=== PATIENT | female | born 1975 | race Caucasian/White ===

== ENCOUNTER 2018-09-10 14:33 | Emergency (ER) | payer OTHER ==
[~2018-09-10] VITALS: Ht 182.9 cm; Wt 122.5 kg
[~2018-09-10 14:33] MED LIST: ADIPEX-P37.5 MG; DESOGEN PO; HYDROCODON-ACE1 EAC7 PO; NAPROSYN500 MG PO; NOHOMEMEDICATIONS; NORCO 5-325 TA1 EACH PO; NUPERCAINAL56.7 GM RC; PROTONIX 20 MG20 M1 PO; TOPAMAX50 MG PO; TRAMADOL 50 MG50 MG PO; ZOFRAN ODT4 MG PO
[2018-09-10] MEDS ORDERED: PHENTERMINE HCL30 MG PO (14:49)
[2018-09-10] MEDS ORDERED: TOPAMAX 25 MG T25 M1 PO (14:49)
[2018-09-10 15:46] LABS: HEMOGLOBIN 9.8 gm/dL (12.0-15.0); PLATELET COUNT* 155 thou/uL (150-400); RDW-CV 19.9 % (10.5-14.5); WBC 2.5 thou/uL (4.0-11.0)
[2018-09-10 15:49] LABS: ABSOLUTE EOSINOPHILS 0.1 thou/uL (0.0-0.7); ABSOLUTE LYMPHOCYTES 0.7 thou/uL (0.8-5.3); ABSOLUTE MONOCYTES 0.3 thou/uL (0.0-1.2); ABSOLUTE NEUTROPHILS 1.3 thou/uL (1.6-8.1); BASOPHILS 0.6 %; EOSINOPHILS 5.9 %; HEMATOCRIT 31.4 % (37.0-47.0); LYMPHOCYTES 29.3 %; MCH 21.4 pg (26.0-34.0); MCHC 31.4 g/dL (28.0-37.0); MCV 68.1 fL (80.0-100.0); MONOCYTES 11.4 %; MPV 8.6 fl. (7.2-11.1); NUCLEATED RBCS 0 /100WBC; POLYS 52.8 %
[2018-09-10 15:56] LABS: PROTIME 10.2 Seconds (9.20-11.50)
[2018-09-10 16:02] LABS: ALBUMIN 3.7 g/dL (3.4-5.0); ALKALINE PHOSPHATASE 66 U/L (46-116); ANION GAP 10 mmol/L (7-16); BUN 7 mg/dL (7-18); CALCIUM 9.3 mg/dL (8.5-10.1); CHLORIDE 105 mmol/L (98-107); CO2 25 mmol/L (21-32); CREATININE 0.9 mg/dL (0.6-1.3); GLUCOSE 99 mg/dL (70-99); LIPASE 116 U/L (73-393); POTASSIUM 3.5 mmol/L (3.5-5.1); SGOT 22 U/L (15-37); SGPT 22 U/L (30-65); SODIUM 140 mmol/L (136-145); TOTAL BILIRUBIN 0.6 mg/dL (<0.1-1.0); TOTAL PROTEIN 7.8 g/dL (6.4-8.2); TROPONIN-I LEVEL <0.06 ng/mL (<0.06)
[2018-09-10 16:32] LABS: ANISOCYTOSIS 2+; HYPOCHROMASIA 1+; MICROCYTES 1+; OVALOCYTES 2+; POLYCHROMASIA 1+
[2018-09-10] MEDS ORDERED: IRON 100 PLUS1 EACH PO (17:32)
[2018-09-10 17:58] VITALS: BP 130/94
--- NOTE | 2018-09-11 14:15 | EKG ---
[place] [address] ELECTROCARDIOGRAM REPORT Name: ISIAH BHAT Room: [facility]#: [id number] Admission: 09/10/18 Attend Phys: Discharge: 09/10/18 Date of : 79 Report #: [id number] THIS REPORT FOR: //name// [facility] Test Date: 2018-09-10 Test Time: 14:39:43 Pat Name: ISIAH SMITHPP Department: Room: Gender: F [employer] Estimator: : 1975 Requested By: Willow Nguyen Order Number: [id number] MD: Jonny Arreaga Measurements Intervals [place] Rate: 83 P: 6 SC: 138 QRS: -24 QRSD: 98 T: 1 QT: 380 QTc: 447 Interpretive Statements Sinus rhythm Borderline left axis deviation RSR' in V1 or V2, probably normal variant Borderline T abnormalities, anterior leads Compared to ECG 08/15/2016 18:48:50 T-wave abnormality now present Electronically Signed On 09-11-2018 14:15:15 CDT by Jonny Arreaga [email or web address] <ELECTRONICALLY SIGNED> By: Jonny Arreaga MD, [facility] 09/11/18 1415 1439 1439 Jonny Arreaga MD, [facility] /EPI
== END 2018-09-10 17:58 | disposition home or self-care (01) ==
LOC: M.ERS 14:33
PROVIDERS: Personal Emergency Response Attendant
DX: D61.818 Other pancytopenia (principal); Z90.49 Acquired absence of other specified parts of digestive tract; Z98.890 Other specified postprocedural states; Z91.041 Radiographic dye allergy status

== ENCOUNTER 2018-10-17 15:43 | Emergency (ER) | payer OTHER ==
[~2018-10-17] VITALS: Ht 182.9 cm; Wt 122.5 kg
[~2018-10-17 15:43] MED LIST changes: +IRON 100 PLUS1 EACH PO; +PHENTERMINE HCL30 MG PO; +TOPAMAX 25 MG T25 M1 PO
[2018-10-17 16:04] LABS: ABSOLUTE EOSINOPHILS 0.2 thou/uL (0.0-0.7); ABSOLUTE LYMPHOCYTES 0.8 thou/uL (0.8-5.3); ABSOLUTE MONOCYTES 0.3 thou/uL (0.0-1.2); ABSOLUTE NEUTROPHILS 1.9 thou/uL (1.6-8.1); BASOPHILS 0.5 %; EOSINOPHILS 4.9 %; HEMATOCRIT 30.8 % (37.0-47.0); LYMPHOCYTES 25.2 %; MCH 22.5 pg (26.0-34.0); MCHC 32.5 g/dL (28.0-37.0); MCV 69.4 fL (80.0-100.0); MPV 8.2 fl. (7.2-11.1); NUCLEATED RBCS 0 /100WBC; PLATELET COUNT* 175 thou/uL (150-400); POLYS 59.4 %; RBC 4.43 mil/uL (4.20-5.00); RDW-CV 19.9 % (10.5-14.5); WBC 3.2 thou/uL (4.0-11.0)
[2018-10-17 16:17] LABS: ANION GAP 9 mmol/L (7-16); BUN 16 mg/dL (7-18); CALCIUM 9.2 mg/dL (8.5-10.1); CHLORIDE 105 mmol/L (98-107); CO2 26 mmol/L (21-32); CREATININE 0.8 mg/dL (0.6-1.3); GLUCOSE 84 mg/dL (70-99); POTASSIUM 3.5 mmol/L (3.5-5.1); SODIUM 140 mmol/L (136-145)
[2018-10-17 16:19] LABS: APTT 24.7 Seconds (25.0-31.3); PROTIME 10.1 Seconds (9.20-11.50)
[2018-10-17 16:22] LABS: HYPOCHROMASIA 2+; MICROCYTES 1+
[2018-10-17 16:23] LABS: ANISOCYTOSIS 1+
[2018-10-17 16:31] LABS: ALBUMIN 3.7 g/dL (3.4-5.0); ALKALINE PHOSPHATASE 66 U/L (46-116); CK-MB MASS 0.6 ng/mL (<0.5-3.6); LIPASE 165 U/L (73-393); MAGNESIUM 1.8 mg/dL (1.8-2.4); NT-PRO BRAIN NAT PEPTIDE 25 pg/mL (<300); SGOT 12 U/L (15-37); SGPT 22 U/L (30-65); TOTAL BILIRUBIN 0.4 mg/dL (<0.1-1.0); TOTAL PROTEIN 7.7 g/dL (6.4-8.2); TROPONIN-I LEVEL <0.06 ng/mL (<0.06)
[2018-10-17 17:00] VITALS: BP 126/55
--- NOTE | 2018-10-18 10:47 | EKG ---
[place] [address] ELECTROCARDIOGRAM REPORT Name: ISIAH BHAT Room: [facility]#: [id number] Admission: 10/17/18 Attend Phys: Discharge: 10/17/18 Date of : [birth year] Report #: [id number] THIS REPORT FOR: //name// [facility] ED Test Date: 2018-10-17 Test Time: 15:47:45 Pat Name: ISIAH SMITHPP Department: Room: Gender: F Neuropsychiatric Aide: Ramon JIMENEZ : 1975 Requested By: Zhao Ferrer Order Number: [id number] MD: Jonny Arreaga Measurements Intervals [place] Rate: 85 P: 11 W[place]: 143 QRS: -34 QRSD: 101 T: 18 QT: 363 QTc: 432 Interpretive Statements Sinus rhythm Left axis deviation Baseline wander in lead(s) V6 Compared to ECG 09/10/2018 14:39:43 T-wave abnormality no longer present Electronically Signed On 10-18-2018 10:47:36 CDT by Jonny Arreaga [email or web address] <ELECTRONICALLY SIGNED> By: Jonny Arreaga MD, [facility] 10/18/18 1047 1547 1547 Jonny Arreaga MD, [facility] /EPI
== END 2018-10-17 17:00 | disposition home or self-care (01) ==
LOC: M.ERS 15:43
PROVIDERS: Family Medicine
DX: R07.89 Other chest pain (principal); Z90.49 Acquired absence of other specified parts of digestive tract; Z98.890 Other specified postprocedural states; Z91.041 Radiographic dye allergy status